=== PATIENT | male | born 1970 | race Caucasian/White ===

== ENCOUNTER 2023-08-21 20:29 | Emergency (ER) | payer MEDICAID, OTHER, SELFPAY ==
[~2023-08-21] VITALS: Ht 180.3 cm; Wt 105.9 kg
[2023-08-22 02:22] LABS: BASO # 0.1 10^3/uL (0.0-0.2); BASO % 0.5 % (0.0-1.0); EOS # 0.3 10^3/uL (0.0-0.5); EOS % 3.5 % (0.0-3.0); HEMATOCRIT 42.7 % (42.0-52.0); HEMOGLOBIN 14.3 g/dl (13.5-17.5); LYMPH # 3.9 10^3/uL (1.5-5.0); LYMPH % 41.4 % (24.0-44.0); MEAN CORPUSCULAR HGB CONC 33.5 g/dl (32.0-36.5); MEAN CORPUSCULAR VOLUME 92.6 fl (80.0-96.0); MONO % 10.2 % (2.0-8.0); NEUTROPHILS # 4.2 10^3/uL (1.5-8.5); NEUTROPHILS % 44.1 % (36.0-66.0); PLATELET COUNT, AUTOMATED 288 10^3/uL (150-450); RED BLOOD COUNT 4.61 10^6/uL (4.30-6.10); WHITE BLOOD COUNT 9.5 10^3/uL (4.0-10.0)
[2023-08-22 03:03] LABS: BLOOD UREA NITROGEN 19 MG/DL (9-23); CALCIUM LEVEL 9.2 MG/DL (8.5-10.1); CARBON DIOXIDE LEVEL 28 MMOL/L (20-31); CHLORIDE LEVEL 107 MMOL/L (98-107); CREATININE FOR GFR 0.78 MG/DL (0.70-1.30); GLOMERULAR FILTRATION RATE > 60.0 (>56); GLUCOSE, FASTING 86 MG/DL (60-100); POTASSIUM SERUM 4.3 MMOL/L (3.5-5.1); SODIUM LEVEL 140 MMOL/L (136-145)
[2023-08-22] MEDS ORDERED: ISOVUE-370 76% 100ML VIAL As Ordered ONE (03:26)
[2023-08-22] MEDS ORDERED: VALA1TAB5 PO (04:37)
[2023-08-22] MEDS ORDERED: PRED20TA PO (04:37)
[2023-08-22] MEDS: predniSONE 20 MG TAB PO ONE (04:49)
[2023-08-22] MEDS: valACYclovir HCL 500 MG TAB PO ONE (04:49)
[2023-08-22] MEDS: ACETAMINOPHEN TAB 650MG DOSE (2X325MG) PO ONE (04:50)
[2023-08-22 05:03] VITALS: BP 139/77; TEMP 98.3; O2SAT 99
== END 2023-08-22 05:06 | disposition home or self-care (01) ==
LOC: M ED 20:29
DX: G51.0 Bell's palsy (principal); F17.200 Nicotine dependence, unspecified, uncomplicated; Z79.52 Long term (current) use of systemic steroids; Z79.899 Other long term (current) drug therapy
CPT/HCPCS: 36415; 70450; 70487; 80048; 85025; 86140; 99283; J7512; Q9967

== ENCOUNTER → 2024-07-30 | Outpatient (CLI) | payer OTHER ==
[~2024-07-30] MED LIST: PRED20TA PO; VALA1TAB5 PO
== END ==
LOC: M RAD 08:49
PROVIDERS: ATTEND Family Medicine
DX: F17.210 Nicotine dependence, cigarettes, uncomplicated (principal)

== ENCOUNTER 2024-10-24 11:47 | Emergency (ER) | payer OTHER ==
[~2024-10-24] VITALS: Ht 180.3 cm; Wt 113.4 kg
[2024-10-24] MEDS ORDERED: ATOR40TA75 (12:07)
[2024-10-24 14:52] VITALS: BP 122/84; TEMP 98.5; O2SAT 97
== END 2024-10-24 15:52 | disposition home or self-care (01) ==
LOC: M ED 11:47
DX: S61.213A Laceration without foreign body of left middle finger without damage to nail, initial encounter (principal); Y92.019 Unspecified place in single-family (private) house as the place of occurrence of the external cause; Y93.9 Activity, unspecified; Y99.9 Unspecified external cause status; E78.5 Hyperlipidemia, unspecified; Z79.899 Other long term (current) drug therapy

== ENCOUNTER 2024-11-28 11:02 | Emergency (ER) | payer OTHER ==
[~2024-11-28] VITALS: Ht 180.3 cm; Wt 115.0 kg
[~2024-11-28 11:02] MED LIST changes: +ATOR40TA75 PO
[2024-11-28] MEDS ORDERED: ACET-897 PO (12:39)
[2024-11-28 12:40] LABS: KETONE, URINE AUTO RFX NEGATIVE (NEGATIVE); LEUKOCYTE ESTERASE UR AUTO RFX NEGATIVE (NEGATIVE); MUCUS, URINE RFX SMALL (NEGATIVE); NITRITE, URINE AUTO RFX NEGATIVE (NEGATIVE); RBC, URINE AUTO RFX 11 /HPF (0-3); SQUAM EPITHELIAL CELL UR AURFX 0 /HPF (0-6); WBC, URINE AUTO RFX 1 /HPF (0-3)
[2024-11-28] MEDS ORDERED: HOME MED LIST COMPLETE! XX SCH (12:40)
[2024-11-28 12:41] LABS: BASO # 0.1 10^3/uL (0.0-0.2); BASO % 0.3 % (0.0-1.0); EOS # 0.0 10^3/uL (0.0-0.5); EOS % 0.1 % (0.0-3.0); LYMPH # 1.4 10^3/uL (1.5-5.0); LYMPH % 8.3 % (24.0-44.0); MONO # 0.8 10^3/uL (0.0-0.8); MONO % 4.9 % (2.0-8.0); NEUTROPHILS # 14.3 10^3/uL (1.5-8.5); NEUTROPHILS % 86.0 % (36.0-66.0); PLATELET COUNT, AUTOMATED 327 10^3/uL (150-450)
[2024-11-28] MEDS ORDERED: ISOVUE-370 76% 100 ML VIAL As Ordered ONE (13:20)
[2024-11-28] MEDS: ONDANSETRON 4MG 2ML VIAL IV ONE (13:22)
[2024-11-28] MEDS: MORPHINE 4 MG/ML 1 ML VIAL IV ONE (13:26)
[2024-11-28] MEDS: cefTRIAXone SOD 1 GM in DEXTROSE 5% (D5W) ADV/MINI-BAG 50 ML IV ONE (14:11)
[2024-11-28] MEDS ORDERED: SULF1TAB23 PO (15:22)
[2024-11-28] MEDS ORDERED: PERC5TAB12 PO (15:22)
[2024-11-28] MEDS ORDERED: ONDA-282 PO (15:22)
[2024-11-28 15:39] VITALS: BP 130/64; TEMP 99.2; O2SAT 96
== END 2024-11-28 15:42 | disposition home or self-care (01) ==
LOC: M ED 11:02
DX: N13.2 Hydronephrosis with renal and ureteral calculous obstruction (principal); K80.20 Calculus of gallbladder without cholecystitis without obstruction; K76.0 Fatty (change of) liver, not elsewhere classified; K57.30 Diverticulosis of large intestine without perforation or abscess without bleeding; Z90.89 Acquired absence of other organs; E78.5 Hyperlipidemia, unspecified; F17.200 Nicotine dependence, unspecified, uncomplicated
CPT/HCPCS: 74177; 80047; 81001; 83605; 85025; 86140; 96365; 96375; 99284; J0696; J2405; Q9967

== ENCOUNTER 2025-01-20 11:39 | Emergency (ER) | payer OTHER ==
[~2025-01-20] VITALS: Ht 180.3 cm; Wt 115.2 kg
[~2025-01-20 11:39] MED LIST changes: +ACET-897 PO; +ONDA-282 PO; +PERC5TAB12 PO; +SULF1TAB23 PO
[2025-01-20 12:28] LABS: BASO # 0.1 10^3/uL (0.0-0.2); BASO % 0.3 % (0.0-1.0); EOS # 0.0 10^3/uL (0.0-0.5); EOS % 0.1 % (0.0-3.0); LYMPH # 1.2 10^3/uL (1.5-5.0); LYMPH % 6.7 % (24.0-44.0); MONO # 0.6 10^3/uL (0.0-0.8); MONO % 3.5 % (2.0-8.0); NEUTROPHILS # 15.4 10^3/uL (1.5-8.5); NEUTROPHILS % 89.0 % (36.0-66.0); PLATELET COUNT, AUTOMATED 373 10^3/uL (150-450)
[2025-01-20 13:01] LABS: ALT/SGPT 38.0 U/L (7.0-40); AST/SGOT 26.0 U/L (<34); CALCIUM LEVEL 9.3 MG/DL (8.5-10.1); CARBON DIOXIDE LEVEL 23.0 MMOL/L (20-31); CHLORIDE LEVEL 108.0 MMOL/L (98-107); CREATININE FOR GFR 1.06 MG/DL (0.70-1.30); GLOMERULAR FILTRATION RATE 83.9 (>56); POTASSIUM SERUM 4.7 MMOL/L (3.5-5.1); SODIUM LEVEL 139.0 MMOL/L (136-145)
[2025-01-20 13:10] LABS: KETONE, URINE AUTO RFX NEGATIVE (NEGATIVE); LEUKOCYTE ESTERASE UR AUTO RFX NEGATIVE (NEGATIVE); MUCUS, URINE RFX SMALL (NEGATIVE); NITRITE, URINE AUTO RFX NEGATIVE (NEGATIVE); RBC, URINE AUTO RFX 3 /HPF (0-3); SQUAM EPITHELIAL CELL UR AURFX 0 /HPF (0-6); WBC, URINE AUTO RFX 1 /HPF (0-3)
[2025-01-20] MEDS ORDERED: ISOVUE-370 76% 100 ML VIAL As Ordered ONE (13:34)
[2025-01-20 13:35] LABS: C REACTIVE PROTEIN QUANTITATIV 0.81 MG/DL (<1.0)
[2025-01-20] MEDS: KETOROLAC 30 MG/ML 1 ML VIAL IV ONE (13:46)
[2025-01-20] MEDS: OXYCODONE/APAP 5MG/325MG(HOME DOSE PACK) PO ONE (14:45)
[2025-01-20] MEDS ORDERED: TAMS-18 PO (14:47)
[2025-01-20] MEDS ORDERED: CIPR-249 PO (14:47)
[2025-01-20] MEDS ORDERED: KETO-204 PO (14:47)
[2025-01-20] MEDS: CIPROFLOXACIN 500 MG TABLET PO ONE (15:00)
[2025-01-20] MEDS: TAMSULOSIN 0.4 MG CAP PO ONE (15:00)
[2025-01-20 15:05] VITALS: BP 135/73; TEMP 98.5; O2SAT 98
== END 2025-01-20 15:12 | disposition home or self-care (01) ==
LOC: M ED 11:39
DX: N20.0 Calculus of kidney (principal); K80.20 Calculus of gallbladder without cholecystitis without obstruction; Z79.2 Long term (current) use of antibiotics; Z79.899 Other long term (current) drug therapy
CPT/HCPCS: 74177; 80048; 80076; 81001; 83605; 83690; 84145; 85025; 85652; 86140; 96374; 99284; J1885; Q9967

== ENCOUNTER → 2025-02-24 | Outpatient (CLI) | payer OTHER ==
[~2025-02-24] MED LIST changes: +CIPR-249 PO; +KETO-204 PO; +SULF-7 PO; -SULF1TAB23 PO; +TAMS-18 PO
== END ==
LOC: M PLAIMG 12:01
PROVIDERS: ATTEND Urology
DX: N20.0 Calculus of kidney (principal)